=== PATIENT | female | born 1985 | race Caucasian/White ===

== ENCOUNTER 2017-01-15 17:29 | Emergency (ER) | payer OTHER ==
[2017-01-15 17:59] LABS: BASOPHILS % 0.3 (0.0-1.5); EOSINOPHILS % 2.4 % (0.0-6.8); LYMPHOCYTES # 1.6 # k/uL (0.6-4.0); MEAN CORPUSCULAR HEMOGLOBIN 32.6 pg (28.0-34.0); MONOCYTES # 0.3 # k/uL (0.0-0.9); MONOCYTES % 2.9 % (0.0-11.0); NEUTROPHILS # 7.4 # k/uL (1.4-7.7)
--- NOTE | 2017-01-15 18:09 | ED Physician Documentation ---
Female Urogenital Problems - HISTORIAN Historian: patient - HPI Chief Complaint: Female Urogenital Problems Onset: other (1619) Severity: mild Further Comments: yes (31 year female patient present with complaints of vaginal bleeding. Patient reports being 10 weeks , states her bleeding started at 1620, reports using 1 pad. G3, P2) - Vaginal Bleeding Care: Yes (1 visit in [place]) - Associated Symptoms Urinary Symptoms: none - ROS CONST: none GI/: denies: nausea, vomiting, decreased appetite, diarrhea, black stools, bloody stools, other CVS/RESP: none EYES/ENT: none NEURO/PSYCH: none MS/SKIN/LYMPH: none - PAST HX Past History: other (gestational diabetes) Other History: none Immunizations: UTD Allergies/Adverse Reactions: Allergies Allergy/AdvReac Type Severity Reaction Status Date / Time amoxicillin trihydrate Allergy Localized Verified 01/15/17 18:12 [From Amoxil] Swelling Home Medications: Ambulatory Orders Medication Instructions Recorded Hxy191/FA/Omega3/Dha/Fish Oil 4 tab PO DAILY 01/15/17 [ Gummies] - SOCIAL HX Smoking History: non-smoker - FAMILY HX Family History: none - REVIEWED ASSESSMENTS Nursing Assessment Reviewed: Yes Vitals Reviewed: Yes Progress - Progress Progress: Patient just moved back to [place], has not established OB provider. Estimates LMP 10/05/2017 Attempted to doppler heart tones, none detected, cannot rule out mechanical issue, poor quality doppler. Patient does not know blood type, states she has not had Rhogam with last pregnancies. Discussed treatment options with patient and , Offered to consult with [facility] for US or provide order for outpatient US in AM. Discussed case with [facility]. Informed patient could come to [facility] ER if she would like further evaluation. Outpatient order provided and patient scheduled for OB US at 0830 in AM. Reviewed signs and symptoms to return to Er. B positive ED Results Lab/Radiology - Lab Results Lab Results: Lab Results 01/15/17 01/15/17 17:50 17:50 WBC 9.70 K/ul K/ul (4.00-12.00) RBC 4.16 M/ul M/ul (3.90-5.20) Hgb 13.6 g/dL g/dL (12.0-16.0) Hct 38.4 % % (34.5-46.5) MCV 92.4 fl fl (80.0-100.0) MCH 32.6 pg pg (28.0-34.0) MCHC 35.3 g/dL g/dL (30.0-36.0) RDW 13.0 % % (11.3-14.3) Plt Count 231 K/mm3 K/mm3 (130-400) Neut % (Auto) 76.7 % % (39.0-79.0) Lymph % (Auto) 16.5 % % (16.0-50.0) [place] % (Auto) 2.9 % % (0.0-11.0) Eos % (Auto) 2.4 % % (0.0-6.8) Baso % (Auto) 0.3 (0.0-1.5) Neut # 7.4 # k/uL # k/uL (1.4-7.7) Lymph # 1.6 # k/uL # k/uL (0.6-4.0) [place] # 0.3 # k/uL # k/uL (0.0-0.9) Eos # 0.2 # k/uL # k/uL (0.0-0.6) Baso # 0.0 # k/uL # k/uL (0.0-0.5) Reactive Lymphs % 1.2 % % (0.0-5.0) Reactive Lymphs # 0.1 # k/uL # k/uL (0.0-0.8) Serum HCG, Qual Positive H (NEGATIVE) - Orders Orders: ED Orders Category Date Time Status ABO/RH TYPE Stat Lab 01/15/17 Ordered CBC/PLATELET/DIFF Stat Lab 01/15/17 17:50 Completed HCG QUANTITATIVE Stat Lab 01/15/17 17:50 Received SERUM HCG Stat Lab 01/15/17 17:50 Completed Female Urogenital Problems - EXAM General Appearance: mild distress EENT: eye inspection normal, BUSHRA Respiratory: no resp. distress, breath sounds nml CVS: reg rate & rhythm, heart sounds normal, equal pulses, no murmur, no gallop , PMI nml, no JVD, no friction rub, 24 Abdomen: soft, non-tender, no organomegaly, no distention, nml bowel sounds Pelvic: external exam nml, speculum exam nml, active bleeding (scant, os closed) . No: cervical dilation Skin: color nml, no rash, warm,dry Extremities: non-tender, normal range of motion, no evidence of injury, no edema , J, [employer] Neuro: oriented X3, CN's nml as tested, motor nml, sensation nml, mood/affect nml Discharge Clincal Impression: Threatened Referrals: Primary Doctor,No [Primary Care Provider] - 2 Days Home Medications: Ambulatory Orders Unk032/FA/Omega3/Dha/Fish Oil [ Gummies] 4 tab PO DAILY 01/15/17 Condition: Stable Disposition: 01 HOME, SELF-CARE Decision to Admit: NO Decision Time: 18:47
[2017-01-15 19:17] VITALS: BP 111/64
== END 2017-01-15 19:15 | disposition home or self-care (01) ==
LOC: ED 17:29
DX: O20.0 Threatened abortion (principal)
CPT/HCPCS: 84702; 84703; 85025; 86900; 86901; 99283

== ENCOUNTER 2017-01-16 08:32 | Outpatient (CLI) | payer OTHER ==
[2017-01-15 19:17] VITALS: BP 111/64
--- NOTE | 2017-01-16 13:58 | Diagnostic Imaging Report ---
ANGIE HU (RASHAWN) - ER [facility] [address] [id number] Report Submission Date: Jan 16, 2017 1:52:35 PM CDT Patient Study Name: REMI CASTILLO Date: Jan 16, 2017 8:44:09 AM CDT Modality Type: US Gender: F Description: OB >14 WEEKS : 85 Institution: [facility] Physician: ANGIE HU (RASHAWN) - ER Ultrasound obstetric HISTORY: patient with vaginal bleeding FINDINGS: Transabdominal pelvic sonography reveals a single viable intrauterine with heart rate of 151 beats per min and estimated gestational age of 13 weeks 6 days. Estimated due date is 07/18/2017. Head circumference/abdominal circumference ratio is normal at 1.26. An anterior placenta is present without previa. The cervix is closed. Neither ovary is visualized. IMPRESSION: Viable intrauterine without visible complication. Electronically signed on Jan 16, 2017 1:52:35 PM CDT by: Brent LIMON
== END 2017-01-16 08:33 ==
LOC: RAD 08:32
PROVIDERS: ATTEND Emergency Medicine
DX: O20.0 Threatened abortion (principal)
CPT/HCPCS: 76805